=== PATIENT | female | born 1990 | race Two or more races ===

== ENCOUNTER 2022-01-22 20:45 | Inpatient (IN) | payer OTHER ==
[~2022-01-22] VITALS: Ht 170.2 cm; Wt 65.8 kg
--- NOTE | 2022-01-22 20:49 | NUR ---
DEVON FROM URGENT CARE, PT HAD A WITNESSED SEIZURE LASTING 30-60SEC. HX OF CHRONIC MIGRAINES. -HEAD TRUAMA (HELPED TO THE FLOOR) 121 BS. PT NOW AWAKE. TOLERATING R/A WELL WITH NO SOB. CONNECTED PT TO POX AND MONITOR
--- NOTE | 2022-01-22 20:56 | NUR ---
CALLED CODE STROKE
[2022-01-22] MEDS ORDERED: IOHEXOL-350 100 ML VIAL IV ONE (20:59)
--- NOTE | 2022-01-22 20:59 | NUR ---
LEFT FOR CT
--- NOTE | 2022-01-22 21:09 | NUR ---
RADIOLOGIST DR. QUINTEROS ON THE PHONE WITH DR. DAIGLE.
--- NOTE | 2022-01-22 21:15 | NUR ---
LAC #20G S/L; PATENT AND INTACT. BLOOD COLLECTED AND SENT TO LAB. EMBEDDED SOFTWARE MANAGER RAC #18G S/L POC ACCUCHECK [id number]
[2022-01-22] MEDS ORDERED: METOCLOPRAMIDE HCL 10 MG/2 ML VIAL ONE (21:16)
--- NOTE | 2022-01-22 21:17 | NUR ---
NEUROLOGIST DR. NELSON ON THE PHONE WITH DR. DAIGLE.
[2022-01-22 21:26] LABS: BASOPHILS % (AUTO) 0.6 % (0.0-2.0); EOSINOPHILS % (AUTO) 1.2 % (0.0-6.0); HEMATOCRIT 37 % (33-45); HEMOGLOBIN 12.2 g/dL (11.5-14.8); LYMPHOCYTES # (AUTO) 2.1 K/uL (0.8-4.8); LYMPHOCYTES % (AUTO) 25.5 % (20.0-44.0); MEAN CORPUSCULAR HGB CONC 33 g/dl (31.0-36.0); MEAN CORPUSCULAR VOLUME 89 fL (82-100); MONOCYTES # (AUTO) 0.6 K/uL (0.1-1.30); MONOCYTES % (AUTO) 6.9 % (2.0-12.0); NEUTROPHILS # (AUTO) 5.3 K/uL (1.8-8.9); NEUTROPHILS % (AUTO) 65.8 % (43.0-81.0); PLATELET COUNT (AUTO) 231 K/uL (150-450); RED BLOOD CELL COUNT(AUTO) 4.15 MIL/uL (4.0-5.2); WHITE BLOOD COUNT (AUTO) 8.1 K/uL (4.3-11.0)
[2022-01-22] MEDS ORDERED: METOCLOPRAMIDE HCL 10 MG/2 ML VIAL IV ONE (21:30)
--- NOTE | 2022-01-22 21:50 | NUR ---
URINE AN COVID ANTIGEN SWAB COLLECTED AND SENT TO LAB
[2022-01-22 21:51] LABS: CALCIUM, SERUM 7.6 mg/dL (8.5-10.1); CARBON DIOXIDE 24 mmol/L (21-32); CHLORIDE 102 mmol/L (98-107); CREATININE 0.8 mg/dL (0.6-1.3); GLUCOSE 112 mg/dL (74-106); POTASSIUM 3.3 mmol/L (3.5-5.1); SODIUM SERUM 134 mmol/L (136-145); UREA NITROGEN, BLOOD 8 mg/dL (7-18)
--- NOTE | 2022-01-22 21:52 | NUR ---
MRSA SWAB COLLECTED AND SENT TO LAB. PATIENT'S BELONGINGS LIST DONE.
[2022-01-22 22:01] LABS: ALANINE AMINOTRANSFERASE 18 U/L (12-78); ALBUMIN 3.4 g/dL (3.4-5.0); ALKALINE PHOSPHATASE 51 U/L (46-116); ASPARTATE AMINOTRANSFERASE 17 U/L (15-37); BILIRUBIN,DIRECT 0.1 mg/dL (0.0-0.2); BILIRUBIN,TOTAL 0.3 mg/dL (0.2-1.0); TOTAL PROTEIN, SERUM 5.9 g/dL (6.4-8.2)
[2022-01-22 23:00] LABS: BILIRUBIN,URINE NEGATIVE (NEGATIVE); COLOR,URINE YELLOW (YELLOW); LEUKOCYTE ESTERASE ,URINE NEGATIVE (NEGATIVE); NITRITE, URINE NEGATIVE (NEGATIVE); PH,URINE 5.5 (5.0-8.0); PROTEIN,URINE NEGATIVE (NEGATIVE); UGLUCOSE NEGATIVE (NEGATIVE); UROBILINOGEN,URINE 0.2 EU/dL (0.2)
--- NOTE | 2022-01-22 23:10 | NUR ---
REPORT GIVEN TO GREY Munguia RN FOR CARMEN
--- NOTE | 2022-01-22 23:25 | NUR ---
TRANSFERRED TO [facility] UNDER ACLS
[2022-01-22 23:30] VITALS: BP 104/60
[2022-01-22] MEDS ORDERED: MORPHINE SULFATE INJ 2 MG/ML DISP.SYRIN IV PRN (23:30)
[2022-01-22] MEDS ORDERED: ACETAMINOPHEN 325 MG TABLET PO PRN (23:30)
[2022-01-22] MEDS ORDERED: ENOXAPARIN SODIUM 40 MG/0.4 ML DISP.SYRIN SQ SCH (23:30)
[2022-01-22] MEDS ORDERED: ONDANSETRON HCL/PF 4 MG/2 ML VIAL IVP PRN (23:30)
[2022-01-22] MEDS ORDERED: LORAZEPAM INJ 2 MG/ML VIAL IV PRN (23:30)
[2022-01-22] MEDS ORDERED: MAG HYDROX/AL HYDROX/SIMETH 30 ML UDC PO PRN (23:30)
--- NOTE | 2022-01-22 23:30 | NUR ---
BRANCH OR DEPARTMENT CHIEF LIBRARIAN ADMITTING NOTES PATIENT ARRIVED TO UNIT 2330, VIA GURNEY, ACCOMPANIED BY 2 ER STAFF; PATIENT IS AWAKE, A/OX3, PATIENT ON ROOM AIR, TOLERATING WELL; BREATHING EVEN AND UNLABORED; PATIENT VERBALIZED SHE IS ANXIOUS TO BE ADMITTED BECAUSE IT IS HER FIRST TIME HAVING A SEIZURE; MEDICAL HX DISCUSSED; PATIENT ON TELE MONITOR, READS NSR 84BPM; PATIENT HAS NKA, R AC #18 AND L AC #20 INTACT AND PATENT, FLUSHING WELL; AWAITING MD ORDERS, PATIENT IS AMBULATORY WITH ASSIST; PATIENT HAS LEFT FOOT BOOT/BRACE; PATIENT REPORTED RECENT BUNION SX; COVID VACCINES UP TO DATE; PATIENT ABLE TO MAKE NEEDS KNOWN; PATIENT ORIENTED TO STAFF AND TO UNIT, CALL LIGHT WITHIN REACH; SAFETY PRECAUTIONS AND SEIZURE PRECAUTIONS IMPLEMENTED; BED LOCKED IN LOW POSITION; SIDE RAILS PADDED AND UP X3, WILL CONT TO MONITOR
[2022-01-22 23:45] LABS: WBC,URINE 0-2 /HPF (0-3)
[2022-01-22 23:46] LABS: BACTERIA,URINE Few /HPF (None Seen); RBC,URINE NONE SEEN /HPF (0-2)
[2022-01-22 23:47] LABS: SQUAMOUS EPITHELIAL CELL,UR 0-2 /HPF (None Seen)
[2022-01-23] VITALS: BP 104/60
--- NOTE | 2022-01-23 | NUR ---
MS RN NOTES PER MD, PATIENT TO BE ADMITTED TO [facility]. TELE MONITOR REMOVED FROM PATIENT; NSR THROUGHOUT MONITORING; WILL CONT TO MONITOR
--- NOTE | 2022-01-23 00:11 | NUR ---
NIVIA MS/TELE NOTE: Unable to scan Lovenox x3 after attempted to scan medication. Administered medication. Patient appeared to tolerated it.
[2022-01-23 00:19] LABS: SERUM AMMONIA < 10 umol/L (11-32)
[2022-01-23 00:30] LABS: THYROID STIMULATING HORMONE 1.299 uIU/mL (0.358-3.74)
--- NOTE | 2022-01-23 06:14 | NUR ---
MS RN NOTES ESTHETICIAN SPA AT BEDSIDE;
--- NOTE | 2022-01-23 06:52 | NUR ---
RADIOLOGICAL EQUIPMENT SPECIALIST CLOSING NOTES PATIENT RESTING IN BED; A/OX3-4; PATIENT ON ROOM AIR, TOLERATING WELL; BREATHING EVEN AND UNLABORED; R AC #18 S/L AND L AC #20 S/L INTACT AND PATENT, FLUSHING WELL; PATIENT ABLE TO MAKE NEEDS KNOWN; ABLE TO TOLERATE PO/SWALLOW. ALL NEEDS RENDERED; SAFETY PRECAUTIONS AND SEIZURE PRECAUTIONS IMPLEMENTED; BED LOCKED IN LOW POSITION; SIDE RAILS PADDED AND UP X3, WILL ENDORSE CARMEN TO ONCOMING SHIFT
[2022-01-23 07:22] LABS: BASOPHILS % (AUTO) 0.3 % (0.0-2.0); EOSINOPHILS % (AUTO) 0.5 % (0.0-6.0); HEMATOCRIT 37 % (33-45); HEMOGLOBIN 12.5 g/dL (11.5-14.8); LYMPHOCYTES # (AUTO) 2.4 K/uL (0.8-4.8); LYMPHOCYTES % (AUTO) 30.6 % (20.0-44.0); MEAN CORPUSCULAR HGB CONC 33 g/dl (31.0-36.0); MEAN CORPUSCULAR VOLUME 89 fL (82-100); MONOCYTES # (AUTO) 0.6 K/uL (0.1-1.30); MONOCYTES % (AUTO) 8.3 % (2.0-12.0); NEUTROPHILS # (AUTO) 4.6 K/uL (1.8-8.9); NEUTROPHILS % (AUTO) 60.3 % (43.0-81.0); PLATELET COUNT (AUTO) 232 K/uL (150-450); WHITE BLOOD COUNT (AUTO) 7.7 K/uL (4.3-11.0)
--- NOTE | 2022-01-23 07:40 | NUR ---
MS/RN OPENING NOTES RECEIVED PATIENT RESTING IN BED; A/OX4; PATIENT ON ROOM AIR, TOLERATING WELL; BREATHING EVEN AND UNLABORED; R AC #18 S/L AND L AC #20 S/L INTACT AND PATENT, FLUSHING WELL; PATIENT ABLE TO MAKE NEEDS KNOWN; ON SEIZURE PRECAUTION. SAFETY PRECAUTIONS IMPLEMENTED; BED LOCKED IN LOW POSITION; SIDE RAILS PADDED AND UP X3, WILL CONTINUE TO MONITOR.
[2022-01-23 07:46] LABS: ALBUMIN 3.2 g/dL (3.4-5.0); BILIRUBIN,TOTAL 0.6 mg/dL (0.2-1.0); CALCIUM, SERUM 8.2 mg/dL (8.5-10.1); CREATININE 0.7 mg/dL (0.6-1.3); MAGNESIUM 2.6 mg/dL (1.8-2.4); PHOSPHORUS 4.5 mg/dL (2.5-4.9); POTASSIUM 3.7 mmol/L (3.5-5.1)
[2022-01-23 08:00] VITALS: BP 101/56
[2022-01-23 16:00] VITALS: BP 100/60
[2022-01-23] MEDS ORDERED: TOPI50TA24 PO (18:24)
--- NOTE | 2022-01-23 19:09 | NUR ---
MS/BALL HOLDER NOTES PATIENT IS ALERT AND ORIENTEDX4, ABLE TO MAKE NEEDS KNOWN. AMBULATORY AND STEADY. STABLE ON ROOM AIR. PATIENT HAS BEEN CLEARED BY DR. HERNÁNDEZ FOR DISCHARGE. DISCHARGE INSTRUCTIONS GIVEN, ABLE TO SIGN AND UNDERSTAND TEACHING. ALL IV ACCESS DISCONTINUED. PATIENT WAS PICKED UP BY MOM AND FOR DC HOME.
== END 2022-01-23 19:10 | disposition home or self-care (01) | DRG 101 ==
LOC: ER 20:47 → TELE 23:04 → MED 01-23 03:07
PROVIDERS: ADMIT Internal Medicine; ATTEND Internal Medicine
DX: R56.9 Unspecified convulsions (principal); G81.91 Hemiplegia, unspecified affecting right dominant side; G43.409 Hemiplegic migraine, not intractable, without status migrainosus; E87.6 Hypokalemia; Z20.822 Contact with and (suspected) exposure to COVID-19; Z97.5 Presence of (intrauterine) contraceptive device
CPT/HCPCS: 36415; 70450-TC; 70496-TC; 70498-TC; 70551-TC; 71045-TC; 80048-TC; 80053-TC; 80076-TC; 81001; 82140-TC; 82962-TC; 83605-TC; 83735-TC; 84100-TC; 84439-TC; 84443-TC; 84484-TC; 84703-TC; 85025-TC; 85730-TC; 87081-TC; 95819-TC; 97116-TC; 97530-TC; C9803; G0378; J1650; J2765; Q9967

== ENCOUNTER 2022-01-26 11:00 | Emergency (ER) | payer OTHER ==
[~2022-01-26] VITALS: Ht 170.2 cm; Wt 65.8 kg
[~2022-01-26 11:00] MED LIST: TOPI50TA24 PO
--- NOTE | 2022-01-26 11:27 | NUR ---
TO ER BED 11, C/O HEADACHE, TINGLY SENSATION TO HANDS ON AND OFF X 2 HOURS, HAD SEIZURE EPISODE SATURDAY. AAOX3, BREATHING EVEN AND NON LABORED, CONNECTED TO MONITOR, AWAITING MD ORDERS
--- NOTE | 2022-01-26 12:20 | NUR ---
DR FLORES AT BEDSIDE FOR EVAL
[2022-01-26 12:54] LABS: BASOPHILS % (AUTO) 0.5 % (0.0-2.0); EOSINOPHILS % (AUTO) 2.1 % (0.0-6.0); HEMATOCRIT 43 % (33-45); LYMPHOCYTES # (AUTO) 1.6 K/uL (0.8-4.8); LYMPHOCYTES % (AUTO) 26.5 % (20.0-44.0); MEAN CORPUSCULAR HGB CONC 33 g/dl (31.0-36.0); MEAN CORPUSCULAR VOLUME 89 fL (82-100); MONOCYTES # (AUTO) 0.5 K/uL (0.1-1.30); MONOCYTES % (AUTO) 7.7 % (2.0-12.0); NEUTROPHILS # (AUTO) 3.9 K/uL (1.8-8.9); NEUTROPHILS % (AUTO) 63.2 % (43.0-81.0); PLATELET COUNT (AUTO) 247 K/uL (150-450); RED BLOOD CELL COUNT(AUTO) 4.78 MIL/uL (4.0-5.2); WHITE BLOOD COUNT (AUTO) 6.2 K/uL (4.3-11.0)
[2022-01-26] MEDS ORDERED: PROCHLORPERAZINE EDISYLATE 10 MG/2 ML VIAL IVP ONE (13:00)
[2022-01-26] MEDS ORDERED: IV NS 0.9% 1,000 ML IV ONE (13:00)
[2022-01-26] MEDS ORDERED: KETOROLAC TROMETHAMINE INJ 30 MG/ML VIAL IV ONE (13:00)
[2022-01-26] MEDS ORDERED: diphenhydrAMINE HCL 50 MG/ML VIAL IV ONE (13:00)
[2022-01-26] MEDS ORDERED: diphenhydrAMINE HCL 50 MG/ML VIAL ONE (13:07)
[2022-01-26] MEDS ORDERED: PROCHLORPERAZINE EDISYLATE 10 MG/2 ML VIAL ONE (13:07)
[2022-01-26] MEDS ORDERED: KETOROLAC TROMETHAMINE 15 MG/ML VIAL ONE (13:32)
[2022-01-26 13:37] LABS: CREATININE 0.8 mg/dL (0.6-1.3); POTASSIUM 4.1 mmol/L (3.5-5.1)
[2022-01-26 15:32] VITALS: BP 112/62
--- NOTE | 2022-01-26 15:32 | NUR ---
IV removed. Catheter intact and site benign. Pressure and 4x4 applied to site. No bleeding noted.Patient discharged to home in stable condition. Written and verbal after care instructions given. Patient verbalizes understanding of instruction.
== END 2022-01-26 15:32 | disposition home or self-care (01) ==
LOC: ER 11:11
DX: R20.2 Paresthesia of skin (principal); G43.909 Migraine, unspecified, not intractable, without status migrainosus; Z98.890 Other specified postprocedural states; Z79.899 Other long term (current) drug therapy
CPT/HCPCS: 36415; 80048; 83735; 84703; 85025; 96361; 96374; 96375; 99285; J0780; J1200; J1885; J7030 ×2